=== PATIENT | male | born 2000 | race Caucasian/White ===

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

== ENCOUNTER 2022-01-20 23:11 | Emergency (ER) | payer MEDICAID ==
[2022-01-21 00:07] VITALS: BP 125/76; PULSE 77
[2022-01-21] MEDS ORDERED: Triamcinolone Acetonide 40 MG/ML 1 ML SDV INJECT ONE (00:09)
[2022-01-21] MEDS ORDERED: diphenhydrAMINE 25 MG Cap PO ONE (00:27)
== END 2022-01-21 00:40 | disposition home or self-care (01) ==
LOC: JP.ED 23:11
DX: L23.7 Allergic contact dermatitis due to plants, except food (principal)
CPT/HCPCS: 96372; 99281; 99284; A9270; J3301

== ENCOUNTER 2022-01-24 21:04 | Emergency (ER) | payer MEDICAID ==
[2022-01-24 21:30] VITALS: BP 126/72; PULSE 98
[2022-01-24] MEDS ORDERED: hydrOXYzine HCl 25 MG Tab PO ONE (21:38)
== END 2022-01-24 21:52 | disposition home or self-care (01) ==
LOC: JP.ED 21:04
DX: L03.113 Cellulitis of right upper limb (principal); L03.114 Cellulitis of left upper limb; L23.7 Allergic contact dermatitis due to plants, except food; F17.210 Nicotine dependence, cigarettes, uncomplicated; Z79.899 Other long term (current) drug therapy
CPT/HCPCS: 99282; A9270